=== PATIENT | female | born 1960 | race Caucasian/White ===

== ENCOUNTER 2016-09-02 07:49 | Day surgery (SDC) | payer BC ==
[~2016-09-02] VITALS: Ht 165.1 cm; Wt 54.4 kg
[2016-09-02] VITALS (12 sets, daily range): BP systolic 119–159; BP diastolic 59–87
[2016-09-02] MEDS ORDERED: CALCIUM500 M2 PO (08:37)
[2016-09-02] MEDS ORDERED: Propofol 10mg/ml 20ml IV ONE (09:30)
[2016-09-02] MEDS ORDERED: Sterile Water Irrig 1000ml IRRIG ONE (09:30)
[2016-09-02] MEDS ORDERED: LR 1000ml ONE (09:30)
[2016-09-02] MEDS ORDERED: fentaNYL 100 mcg/2 mL IV ONE (09:30)
[2016-09-02] MEDS ORDERED: Dexamethasone 4mg/ml vial ONE (09:30)
[2016-09-02] MEDS ORDERED: NS Irrig 1000ml ONE (09:30)
[2016-09-02] MEDS ORDERED: Midazolam 2mg/2ml Inj ONE (09:30)
[2016-09-02] MEDS ORDERED: Bupivacaine 0.5% Inj 30 ml vial INJ ONE (09:31)
--- NOTE | 2016-09-02 09:39 | Pre-Procedure Note/Attestation ---
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 I attest that, if there was a reasonable possibility of needing a blood transfusion, the patient (or the patient's legal community relations representative) was given the [facility] standardized written summary, pursuant to the [place] Blood Safety Act ([place] Health and Safety Code # 1645, as amended). I attest that I re-evaluated the patient just prior to the surgery and that there has been no change in the patient's H&P, except as documented below: KEO VALADEZ Sep 02, 2016 09:39
--- NOTE | 2016-09-02 10:04 | Anethesia Preoperative Eval ---
Anesthesia Pre-op PMH/ROS General Date of Evaluation: Sep 02, 2016 Time of Evaluation: 09:00 Anesthesiologist: naveen ASA Score: ASA 1 Mallampati Score Class I : Soft palate, uvula, fauces, pillars visible Class II: Soft palate, uvula, fauces visible Class III: Soft palate, base of uvula visible Class IV: Only hard plate visible Mallampati Classification: Class I Allergies: Coded Allergies: No Known Allergies (Unverified , 09/02/16) Anesthesia Pre-op Phys. Exam Physician Exam Last Vital Signs Date Time Temp Pulse Resp B/P Pulse Ox O2 Delivery O2 Flow Rate FiO2 09/02/16 08:39 98.1 66 20 133/76 100 Room Air Gary Vigil MD Sep 02, 2016 10:04
[2016-09-02] MEDS ORDERED: Bacitracin Oint 15gm Tube TOPIC ONE (10:12)
[2016-09-02] MEDS ORDERED: Betadine 10% Oint 15gm TOPIC ONE (10:12)
[2016-09-02] MEDS ORDERED: Midazolam 2mg/2ml Inj IVP PRN (10:15)
[2016-09-02] MEDS ORDERED: Ketorolac 30mg Inj IV PRN (10:15)
[2016-09-02] MEDS ORDERED: Metoclopramide 10mg/2ml Inj IVP PRN (10:15)
[2016-09-02] MEDS ORDERED: fentaNYL 100 mcg/2 mL IV PRN (10:15)
--- NOTE | 2016-09-02 10:55 | Brief Operative Note ---
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
--- NOTE | 2016-09-02 11:01 | Immediate Post-Op Evaluation ---
Immediate Post-Op Evalulation Immediate Post-Op Evalulation Procedure: left bunionectomy Date of Evaluation: Sep 02, 2016 Time of Evaluation: 11:00 Nausea: No Vomiting: No Hydration Status: adequate Given Within 1 Hr of Incision: Yes Gary Vigil MD Sep 02, 2016 11:01
--- NOTE | 2016-09-02 15:47 | Diagnostic Imaging Report ---
Indication: POST-OP Technique: 3 views right foot Comparison: none Findings: Patient is status post bunionectomy and first metatarsal osteotomy. There is also evidence of osteotomy of the first proximal phalanx. No acute fractures otherwise. No dislocations. Joint spaces are preserved. Small amount of retained air from the surgical exposure seen in the soft tissues Impression: Postoperative right foot. No unusual features
--- NOTE | 2016-09-02 16:45 | Pre-op HX & Phy Repo 2 SIG ---
DATE OF ADMISSION: 09/02/2016 HISTORY OF PRESENT ILLNESS: This is a 56-year-old white female that is admitted today for an outpatient bunionectomy of her right foot. The patient has been suffering from bunion pain, bilateral foot for the past several years. She had tried conservative care, which consisted of modifying her shoe gear, padding the bunion, and orthotics without success. The patient was consulted on the bunionectomy and elected to proceed. PAST MEDICAL HISTORY: Unremarkable. She underwent colonoscopy in 2013. MEDICATIONS: None. ALLERGIES: No known drug allergies. PODIATRIC PHYSICAL EXAMINATION: VASCULAR STUDY: Dorsalis pedis and posterior tibial arteries are palpable measuring 2/4 bilaterally. The capillary filling time is less than 4 seconds to all digits bilaterally. No varicosities are noted bilaterally. NEUROLOGICAL: Intact reflexes, Achilles and patella measuring 2/4 bilaterally. Sensation, proprioception, and vibration sensation are all intact in bilateral lower extremities. Clonus is absent. Babinski is negative. MUSCULOSKELETAL: A stage III hallux abductovalgus with bunion deformity, bilateral foot. There is pain with palpation over the medial aspect of the first metatarsophalangeal joint. Range of motion is full and without crepitation. There are semi-reducible hammertoe deformities of the second and third digits bilaterally. No other structural deformities are noted. DERMATOLOGICAL: No lesions, ulcers, or scars bilaterally. All nails are present and healthy. ASSESSMENT: Hallux abductovalgus with bunion deformity bilaterally. PLAN: The patient is admitted today for bunionectomy of her right foot. Risk, complications, and alternative treatments were discussed again with the patient. The patient was given postoperative instructions and postoperative pain medications were dispensed to the patient. eFlix Leslie D.P.M. DR: CARTER JOB#: [id number] CC:
--- NOTE | 2016-09-02 18:45 | Operative Note - Dictated ---
DATE OF OPERATION: 09/02/2016 SURGEON: Felix Leslie D.P.M. ANESTHESIOLOGIST: Dr. Vigil. ANESTHESIA: General. PREOPERATIVE DIAGNOSIS: Hallux abductovalgus with bunion deformity, right foot. POSTOPERATIVE DIAGNOSIS: Hallux abductovalgus with bunion deformity, right foot. PROCEDURE PERFORMED: 1. Modified chevron bunionectomy with screw fixation, right foot. 2. Krzysztof osteotomy with staple fixation, right foot. DESCRIPTION OF THE OPERATION: The patient was brought to the operating room and was placed on the operating room table in a supine position. General anesthesia administered by the anesthesiologist. Local anesthesia consisting of 0.5% Marcaine plain, total of 20 mL was administered to the right foot. An ankle tourniquet was applied to the right lower extremity. The foot was prepped and draped in the usual sterile manner. An Esmarch bandage was utilized to exsanguinate the blood and the right ankle tourniquet was inflated to 250 mmHg. Attention was directed to the right first metatarsophalangeal joint where an approximately 6 cm curvilinear incision was centered over the joint, the incision was deepened utilizing sharp and blunt dissection with care being taken to cauterize and ligate all bleeders. At the level of the joint, a linear capsulotomy was performed. The capsule was reflected medially and laterally and the head of the first metatarsal was exposed. Utilizing a sagittal saw, the medial eminence was resected in total. The remaining bone was rasped smooth. The wound was copiously flushed utilizing sterile saline. At this point, a lateral release was performed utilizing a 67-blade and the hallux was brought into a rectus position. Attention was then directed to the first metatarsal neck where a V type osteotomy utilizing the sagittal saw was performed through and through with the apex distal and the arms protruding proximally. The capital fragment was transposed laterally and fixated onto the metatarsal shaft utilizing 2.5 20 mm headless screw which was driven from proximal dorsal to distal plantar. At this point, the overhang of the metatarsal was resected in total utilizing a sagittal saw. The remaining bone was rasped smooth. The wound was copiously flushed utilizing sterile saline. Attention was then directed to the intermediate phalanx where the capsulotomy was extended and reflected plantarly and dorsally. Utilizing a sagittal saw, the medial wedge was taken with care leaving the lateral cortex intact. The osteotomy was then fixated utilizing an 8 mm staple which was inserted following two drill holes which were driven just proximal and distal to the osteotomy. The wound was copiously flushed utilizing sterile saline. At this point, the capsule was reapproximated utilizing 3-0 Vicryl in a simple interrupted type stitch. The subcutaneous tissue was then reapproximated utilizing 4-0 Vicryl in a buried knot type stitch. The skin was then reapproximated utilizing 4-0 nylon in a simple interrupted type stitch. The wound was dressed utilizing an Adaptic 4 x 4 gauze and 3 inch Ebony. Right ankle tourniquet was deflated and vascular supply was noted to all digits right foot. Felix Leslie D.P.M. DR: Horacio JOB#: [id number] CC:
--- NOTE | 2016-09-03 09:24 | 48 Hour Post Anesthesia Eval ---
Post Anesthesia Evaluation Procedure: left bunionectomy Date of Evaluation: Sep 03, 2016 Time of Evaluation: 09:23 Nausea: No Vomiting: No Mental Status/LOC: patient returned to baseline Follow-up care needed: ready to discharge Gary Vigil MD Sep 03, 2016 09:24
== END 2016-09-02 14:55 | disposition home or self-care (01) ==
LOC: SUR 07:49
DX: M20.11 Hallux valgus (acquired), right foot (principal); M21.611 Bunion of right foot; M20.42 Other hammer toe(s) (acquired), left foot; M20.41 Other hammer toe(s) (acquired), right foot; E53.8 Deficiency of other specified B group vitamins
CPT/HCPCS: 28299; 73630; 97161; C1713; J0690; J1100; J1885; J2250; J2704; J2765; J3010; J3490; J7120; 94003; 94150